=== PATIENT | female | born 1970 | race Two or more races ===

== ENCOUNTER → 2017-02-08 | Outpatient (CLI) | payer SELFPAY ==
--- NOTE | 2017-02-09 10:54 | MM ---
Reason for exam: screening (asymptomatic). Last mammogram was performed 3 years and 7 months ago. History: Benign left mammotome panel of the left breast, July 30, 2013. Physical Findings: A clinical breast exam by your physician is recommended on an annual basis and results should be correlated with mammographic findings. MG 3D Screening Mammo W/Cad Bilateral CC and MLO view(s) were taken. Prior study comparison: July 20, 2013, left diagnostic mammogram w/CAD. December 06, 2012, [facility] DIGITAL LEFT BREAST MAMMOGRAM w/CAD. The breast tissue is heterogeneously dense. This may lower the sensitivity of mammography. Finding: There are typically benign diffuse/scattered calcifications in both breasts. No significant changes in finding since July 20, 2013 and December 06, 2012. ASSESSMENT: Benign, BI-RAD 2 RECOMMENDATION: Routine screening mammogram of both breasts in 1 year.
== END | disposition home or self-care (01) ==
LOC: RADMAMWWP 07:37
PROVIDERS: ATTEND Family Medicine
DX: Z12.31 Encounter for screening mammogram for malignant neoplasm of breast (principal)
CPT/HCPCS: 77063; G0202

== ENCOUNTER → 2017-09-16 | Outpatient (CLI) | payer OTHER ==
--- NOTE | 2017-09-16 10:56 | US ---
EXAMINATION TYPE: US transvaginal DATE OF EXAM: 09/16/2017 COMPARISON: NONE CLINICAL HISTORY: [id number] ABNORMAL UTERINE AND VAGINAL BLEEDING, UNSPECIFIED. Patient stated recent LMP had longer duration days 3-11; TECHNIQUE: Transvaginal (TV) per order Date of LMP: 09/03/2017 EXAM MEASUREMENTS: Uterus: 9.2 x 5.7 x 5.1 cm Endometrial Stripe: 0.8 cm Right Ovary: 2.3 x 1.8 x 1.3 cm Left Ovary: 2.7x 2.6 x 1.3 cm 1. Uterus: Anteverted; multiple Nabothian Cysts in cervix with largest = 1.0 x 0.8 x 0.7cm; hypoecho ic oval mass upper right myometrium = 0.8 x 0.9 x 1.0cm and may be fibroid vs. complex cyst; and larg er upper oval complex mass is noted in myometrium = 2.3 x 2.0 x 1.9cm and may be fibroid 2. Endometrium: thickness wnl for day 14LMP 3. Right Ovary: simple cyst = 0.9 x 0.8 x 0.8cm 4. Left Ovary: thick walled cyst = 0.9x 1.1 x 0.9cm 5. Bilateral Adnexa: wnl 6. Posterior cul-de-sac: wnl IMPRESSION: 1. Possible leiomyomatous changes of the uterus. 2. Multiple cervical nabothian cysts. 3. Complex cyst left ovary may reflect a mildly hemorrhagic cyst. Consider follow-up study in 6 weeks .
== END | disposition home or self-care (01) ==
LOC: RADUSWWP 09:32
PROVIDERS: ATTEND Family Medicine
DX: N83.202 Unspecified ovarian cyst, left side (principal); N88.8 Other specified noninflammatory disorders of cervix uteri
CPT/HCPCS: 76830